=== PATIENT | male | born 1990 | race Two or more races ===

== ENCOUNTER 2024-10-24 17:10 | Inpatient (IN) | payer BC ==
[~2024-10-24] VITALS: Ht 177.8 cm; Wt 118.8 kg
[2024-10-25] VITALS (50 sets, daily range): BP systolic 98–125; BP diastolic 60–82; PULSE 87–108; RESP 13–21; TEMP 35.9–37.2; O2SAT 91–100
[2024-10-25] MEDS ORDERED: DEXTROSE 50% WATER 50ML SYRINGE IV PRN (04:30)
[2024-10-25] MEDS: HYDROCODONE/ACETAMINOPHEN 5/325MG TABLET PO PRN (04:56)
[2024-10-25] MEDS: CEFEPIME 1GM PREMIX 50ML IV NR (06:24)
[2024-10-25] MEDS: BLOOD SUGAR DIAGNOSTIC STRIP TEST SCH (06:37)
[2024-10-25] MEDS: INSULIN LISPRO 100 UNITS/ML SUBCUT SCH (07:10)
[2024-10-25 08:04] LABS: CLARITY URINE CLEAR (CLEAR); COLOR URINE DARK YELLOW (YELLOW); GLUCOSE URINE NEGATIVE (NEGATIVE); KETONES URINE 1+ (NEGATIVE); LEUKOCYTE ESTERASE URINE NEGATIVE (NEGATIVE); NITRITE URINE NEGATIVE (NEGATIVE); OCCULT BLOOD URINE 2+ (NEGATIVE); PH URINE 5.5 (4.5-8.0); PROTEIN URINE 3+ (NEGATIVE); SPECIFIC GRAVITY URINE 1.037 (1.005-1.030)
[2024-10-25 08:44] LABS: BACTERIA URINE 2+; RBC URINE 25-50 /hpf (0-2); SQUAMOUS EPITHELIAL CELL URINE NONE SEEN /lpf (RARE/1+); YEAST URINE NONE SEEN
[2024-10-25 08:45] LABS: MUCUS URINE 2+ /lpf (NONE/TRACE)
[2024-10-25] MEDS: METOPROLOL TARTRATE 50MG TABLET PO SCH (09:00)
[2024-10-25] MEDS ORDERED: CEFEPIME 1GM IN DEXT 5% 50ML IV SCH (09:00)
[2024-10-25] MEDS: LOSARTAN 50 MG TABLET PO SCH (09:00)
[2024-10-25] MEDS ORDERED: GENTAMICIN SULF 40MG/ML 2ML VIAL ONE (09:24)
[2024-10-25] MEDS ORDERED: THROMBIN (BOVINE) 5000 UNITS/VIAL TOP ONE (09:24)
[2024-10-25] MEDS ORDERED: LIDOCAINE HCL/EPINEPHRINE 1%-EPI 1:100,000 20ML VIAL ONE (09:24)
[2024-10-25] MEDS ORDERED: SUGAMMADEX SODIUM 200MG/2ML VIAL IV ONE (09:52)
[2024-10-25] MEDS ORDERED: PROPOFOL 200MG/20ML VIAL IV ONE (10:07)
[2024-10-25] MEDS ORDERED: FENTANYL CITRATE/PF 50MCG/ML 2ML VIAL ONE ×2 (10:08→12:41)
[2024-10-25] MEDS ORDERED: MIDAZOLAM HCL 2 MG/2 ML VIAL ONE ×2 (10:08→12:41)
[2024-10-25 10:33] LABS: INR 1.1; PROTHROMBIN TIME 11.7 sec (9.6-11.0)
[2024-10-25 10:36] LABS: CHLORIDE 97 mEq/L (98-107); HEMATOCRIT. 40.2 % (42.0-52.0); MEAN CORPUSCULAR HEMOGLOBIN 27.3 pg (28.0-32.0); MEAN CORPUSCULAR HGB CONC 32.3 g/dL (31.0-37.0); MEAN CORPUSCULAR VOLUME 84.3 fL (80.0-94.0); PLATELET 301 x1000/uL (130-400); POTASSIUM 3.3 mEq/L (3.5-5.1); RED BLOOD CELL COUNT 4.77 mill/uL (4.7-6.1); RED CELL DISTRIBUTION WIDTH 13.8 % (11.6-14.6); SODIUM 133 mEq/L (136-145); WHITE BLOOD COUNT 15.2 x1000/uL (4.5-11.0)
[2024-10-25 10:37] LABS: CARBON DIOXIDE 25 mEq/L (21-32)
[2024-10-25 10:42] LABS: CREATININE 0.6 mg/dL (0.6-1.3); GLUCOSE 152 mg/dL (70-105); TRIGLYCERIDE 105 mg/dL (0-150); UREA NITROGEN BLOOD 20 mg/dL (9-23)
[2024-10-25 10:43] LABS: LDL CHOLESTEROL 59 mg/dL (5-100)
[2024-10-25 10:44] LABS: CHOLESTEROL 97 mg/dL (<200); HDL CHOLESTEROL 21 mg/dL (>55)
[2024-10-25 10:45] LABS: DIFFERENTIAL COMMENT 1
[2024-10-25] MEDS ORDERED: LIDOCAINE HCL 1% 20ML VIAL ONE (10:58)
[2024-10-25] MEDS ORDERED: ROCURONIUM BROMIDE 10MG/ML VIAL 5ML IV ONE (11:04)
[2024-10-25] MEDS ORDERED: HYDROMORPHONE HCL/PF 2MG/ML INJ ONE (11:08)
[2024-10-25] MEDS: PROPOFOL 10MG/ML 100ML 100 ML IV PRN (13:50)
[2024-10-25] MEDS ORDERED: CEFAZOLIN SODIUM 1000MG/VIAL IV SCH (14:00)
[2024-10-25 14:04] LABS: BG BASE EXCESS -2.5 mmol/L (-2.0-3.0); BG CARBOXYHEMOGLOBIN 0.9 % (0.5-1.5); BG DEOXYHEMOGLOBIN 1.5 % (0.0-5.0); BG FRACTION INSPIRED OXYGEN 100; BG HCO3 ACT 23.2 mmol/L (21.0-28.0); BG OXYGEN SATURATION 98.5 % (94.0-98.0); BG OXYHEMOGLOBIN 97.6 % (94.0-98.0); BG PCO2 43.2 mmHg (35.0-48.0); BG PH 7.347 (7.350-7.450); BG PO2 127.6 mmHg (83.0-108.0); BG SAMPLE SITE ALINE; BG TOTAL HEMOGLOBIN 13.1 g/dL (13.5-17.5); BG VENT MODE VENT - AC
[2024-10-25] MEDS: CEFAZOLIN 1000MG PREMIX 50ML IV SCH (14:34)
[2024-10-25] MEDS: DEXT 5%/LACTATED RINGERS 1,000 ML IV SCH (14:34)
[2024-10-25] MEDS: CEFEPIME 1GM PREMIX 50ML IV SCH (14:55)
[2024-10-25] MEDS: METFORMIN HCL 500MG TABLET PO SCH (17:00)
[2024-10-25] MEDS: DEXAMETHASONE 4MG/ML 1ML VIAL IV SCH (17:57)
[2024-10-25 18:54] LABS: PLATELET ESTIMATE NORMAL
[2024-10-25] MEDS: VANCOMYCIN 2,000 MG in SODIUM CHLORIDE 0.9% 500 ML IV NR (20:17)
[2024-10-25] MEDS: ATORVASTATIN CALCIUM 20MG TABLET PO SCH (21:00)
[2024-10-25] MEDS: POTASSIUM CHLORIDE 40 MEQ in DEXT 5% WATER 250 ML IV NR (21:14)
[2024-10-26] VITALS (95 sets, daily range): BP systolic 90–145; BP diastolic 61–89; PULSE 85–115; RESP 10–30; TEMP 36.9–37.2; O2SAT 82–100
[2024-10-26] MEDS: IPRATROPIUM/ALBUTEROL 0.5-3(2.5)MG/3ML NEB HHN SCH (00:20)
[2024-10-26] MEDS: BLOOD SUGAR DIAGNOSTIC STRIP TEST SCH (00:34)
[2024-10-26] MEDS: INSULIN LISPRO 100 UNITS/ML SUBCUT SCH (00:43)
[2024-10-26] MEDS: VANCOMYCIN 1.5GM/250ML IV SCH (04:38)
[2024-10-26] MEDS: MORPHINE SULFATE 4 MG/ML INJ (FOR IV/IM USE) IV PRN (05:16)
[2024-10-26 05:22] LABS: HEMATOCRIT 36.2 % (42.0-52.0); HEMOGLOBIN 12.2 g/dL (14.0-18.0); MEAN CORPUSCULAR HEMOGLOBIN 28.3 pg (28.0-32.0); MEAN CORPUSCULAR HGB CONC 33.6 g/dL (31.0-37.0); MEAN CORPUSCULAR VOLUME 84.2 fL (80.0-94.0); PLATELET 300 x1000/uL (130-400); RED BLOOD CELL COUNT 4.31 mill/uL (4.7-6.1); RED CELL DISTRIBUTION WIDTH 13.6 % (11.6-14.6); WHITE BLOOD COUNT 18.5 x1000/uL (4.5-11.0)
[2024-10-26 05:30] LABS: CHLORIDE 100 mEq/L (98-107); POTASSIUM 3.9 mEq/L (3.5-5.1); SODIUM 133 mEq/L (136-145)
[2024-10-26 05:31] LABS: CARBON DIOXIDE 25 mEq/L (21-32)
[2024-10-26 05:32] LABS: CALCIUM 8.4 mg/dL (8.7-10.4)
[2024-10-26 05:36] LABS: CREATININE 0.6 mg/dL (0.6-1.3); TRIGLYCERIDE 132 mg/dL (0-150)
[2024-10-26 05:37] LABS: UREA NITROGEN BLOOD 25 mg/dL (9-23)
[2024-10-26 06:40] LABS: GLUCOSE 308 mg/dL (70-105)
[2024-10-26] MEDS: SODIUM CHLORIDE 0.9% 1,000 ML IV SCH (13:27)
[2024-10-26] MEDS: PROPOFOL 10MG/ML 100ML 100 ML IV PRN (14:07)
[2024-10-26] MEDS: NICARDIPINE 100 MG in SODIUM CHLORIDE 0.9% 60 ML IV PRN (20:23)
[2024-10-26 23:39] LABS: BG BASE EXCESS 1.1 mmol/L (-2.0-3.0); BG CARBOXYHEMOGLOBIN 0.5 % (0.5-1.5); BG DEOXYHEMOGLOBIN 0.8 % (0.0-5.0); BG FRACTION INSPIRED OXYGEN 80; BG HCO3 ACT 25.4 mmol/L (21.0-28.0); BG METHEMOGLOBIN 0.3 % (0.5-1.5); BG OXYGEN SATURATION 99.2 % (94.0-98.0); BG OXYHEMOGLOBIN 98.4 % (94.0-98.0); BG PCO2 39.2 mmHg (35.0-48.0); BG PH 7.429 (7.350-7.450); BG PO2 151.2 mmHg (83.0-108.0); BG SAMPLE SITE RIGHT RADIAL; BG TOTAL HEMOGLOBIN 13.8 g/dL (13.5-17.5); BG VENT MODE HIGH FLOW
[2024-10-27] VITALS (103 sets, daily range): BP systolic 82–159; BP diastolic 44–91; PULSE 86–116; RESP 0–30; TEMP 36.5–37.2; O2SAT 93–100
[2024-10-27 05:36] LABS: HEMATOCRIT. 36.9 % (42.0-52.0); HEMOGLOBIN. 12.3 g/dL (14.0-18.0); MEAN CORPUSCULAR HEMOGLOBIN 28.2 pg (28.0-32.0); MEAN CORPUSCULAR HGB CONC 33.5 g/dL (31.0-37.0); MEAN CORPUSCULAR VOLUME 84.3 fL (80.0-94.0); MEAN PLATELET VOLUME 8.1 fl (7.4-10.4); PLATELET 284 x1000/uL (130-400); RED BLOOD CELL COUNT 4.38 mill/uL (4.7-6.1); RED CELL DISTRIBUTION WIDTH 13.7 % (11.6-14.6); WHITE BLOOD COUNT 30.7 x1000/uL (4.5-11.0)
[2024-10-27 05:40] LABS: CHLORIDE 103 mEq/L (98-107); POTASSIUM 3.6 mEq/L (3.5-5.1); SODIUM 138 mEq/L (136-145)
[2024-10-27 05:41] LABS: CARBON DIOXIDE 27 mEq/L (21-32)
[2024-10-27 05:42] LABS: CALCIUM 8.3 mg/dL (8.7-10.4)
[2024-10-27 05:46] LABS: CREATININE 0.6 mg/dL (0.6-1.3); GLUCOSE 255 mg/dL (70-105); TRIGLYCERIDE 155 mg/dL (0-150)
[2024-10-27 05:47] LABS: UREA NITROGEN BLOOD 20 mg/dL (9-23)
[2024-10-27 06:38] LABS: DIFFERENTIAL COMMENT 1
[2024-10-27] MEDS: GADOTERATE MEGLUMINE 5 MMOL/10 ML VIAL IV ONE (09:07)
[2024-10-27] MEDS: LIDOCAINE HCL 1% 10 MG/ML 10ML VIAL ONE (09:07)
[2024-10-27 11:00] LABS: PLATELET ESTIMATE NORMAL
[2024-10-27] MEDS ORDERED: CLONIDINE 0.1MG TABLET PO PRN ×2 (13:15→19:15)
[2024-10-27] MEDS: CEFEPIME 2GM/50ML DUPLEX 50 ML IV SCH (13:24)
[2024-10-27] MEDS: METOPROLOL TARTRATE 50MG TABLET PO NR (13:24)
[2024-10-27] MEDS: LOSARTAN 50 MG TABLET PO NR (13:24)
[2024-10-27] MEDS: VANCOMYCIN 1G PREMIX 200 ML IV SCH (13:24)
[2024-10-27] MEDS ORDERED: VANCOMYCIN 1.25GM PMX (XELLIA) 250 ML IV SCH (14:00)
[2024-10-27] MEDS: INSULIN LISPRO 100 UNITS/ML SUBCUT SCH (17:30)
[2024-10-27] MEDS: BACITRACIN 14GM TUBE TOP SCH (20:45)
[2024-10-28] VITALS (57 sets, daily range): BP systolic 113–194; BP diastolic 74–103; PULSE 78–97; RESP 10–27; TEMP 36–36.8; O2SAT 91–100
[2024-10-28 10:01] LABS: HEMOGLOBIN. 12.3 g/dL (14.0-18.0); MEAN CORPUSCULAR HEMOGLOBIN 27.4 pg (28.0-32.0); MEAN CORPUSCULAR HGB CONC 32.4 g/dL (31.0-37.0); MEAN CORPUSCULAR VOLUME 84.7 fL (80.0-94.0); MEAN PLATELET VOLUME 8.1 fl (7.4-10.4); PLATELET 268 x1000/uL (130-400); RED BLOOD CELL COUNT 4.49 mill/uL (4.7-6.1); RED CELL DISTRIBUTION WIDTH 13.7 % (11.6-14.6); WHITE BLOOD COUNT 15.5 x1000/uL (4.5-11.0)
[2024-10-28 10:08] LABS: DIFFERENTIAL COMMENT 1
[2024-10-28 10:13] LABS: CHLORIDE 102 mEq/L (98-107); SODIUM 133 mEq/L (136-145)
[2024-10-28 10:14] LABS: CARBON DIOXIDE 25 mEq/L (21-32)
[2024-10-28 10:15] LABS: CALCIUM 8.8 mg/dL (8.7-10.4)
[2024-10-28 10:19] LABS: CREATININE 0.6 mg/dL (0.6-1.3); GLUCOSE 279 mg/dL (70-105); UREA NITROGEN BLOOD 23 mg/dL (9-23)
[2024-10-28] MEDS ORDERED: NALOXONE HCL 0.4MG/ML VIAL IV PRN (11:45)
[2024-10-28 13:55] LABS: PLATELET ESTIMATE NORMAL
[2024-10-28] MEDS: CEFTRIAXONE 2GM/50ML 50 ML IV SCH (23:22)
[2024-10-29] VITALS (8 sets, daily range): BP systolic 118–135; BP diastolic 75–90; PULSE 79–97; RESP 16–19; TEMP 35.7–36.9; O2SAT 96–98
[2024-10-29 07:34] LABS: CHLORIDE 104 mEq/L (98-107); POTASSIUM 3.9 mEq/L (3.5-5.1); SODIUM 141 mEq/L (136-145)
[2024-10-29 07:35] LABS: CALCIUM 8.4 mg/dL (8.7-10.4); CARBON DIOXIDE 30 mEq/L (21-32)
[2024-10-29 07:40] LABS: CREATININE 0.5 mg/dL (0.6-1.3); GLUCOSE 150 mg/dL (70-105); UREA NITROGEN BLOOD 21 mg/dL (9-23)
[2024-10-29 07:41] LABS: VANCOMYCIN TROUGH 13.4 ug/mL (5.0-10.0)
[2024-10-29 07:53] LABS: BASOPHILS % 0.1 % (0.0-2.0); EOSINOPHILS % 0.4 % (0.0-5.0); HEMATOCRIT. 37.1 % (42.0-52.0); HEMOGLOBIN. 12.1 g/dL (14.0-18.0); LYMPHOCYTES % 11.2 % (20.0-50.0); MEAN CORPUSCULAR HEMOGLOBIN 27.6 pg (28.0-32.0); MEAN CORPUSCULAR HGB CONC 32.7 g/dL (31.0-37.0); MEAN CORPUSCULAR VOLUME 84.6 fL (80.0-94.0); MEAN PLATELET VOLUME 7.5 fl (7.4-10.4); MONOCYTES % 5.7 % (2.0-8.0); NEUTROPHILS % 82.6 % (40.0-76.0); PLATELET 255 x1000/uL (130-400); RED BLOOD CELL COUNT 4.39 mill/uL (4.7-6.1); RED CELL DISTRIBUTION WIDTH 13.6 % (11.6-14.6); WHITE BLOOD COUNT 15.3 x1000/uL (4.5-11.0)
[2024-10-30] VITALS (9 sets, daily range): BP systolic 108–132; BP diastolic 69–85; PULSE 82–100; RESP 18–20; TEMP 36.3–37.7; O2SAT 93–98
[2024-10-30] MEDS ORDERED: METF-416 PO (12:07)
[2024-10-31] VITALS: BP 126/85; PULSE 101; RESP 20; TEMP 36.2; O2SAT 96
[2024-10-31 04:00] VITALS: BP 148/93; PULSE 94; RESP 20; TEMP 36.2; O2SAT 97
[2024-10-31 08:00] VITALS: BP 144/91; PULSE 92; RESP 19; TEMP 38.3; O2SAT 100
[2024-10-31 12:00] VITALS: BP 131/83; PULSE 96; RESP 19; TEMP 37.8; O2SAT 100
[2024-10-31 16:00] VITALS: BP 116/77; PULSE 100; RESP 19; TEMP 36.7; O2SAT 95
[2024-10-31 16:57] LABS: BASOPHILS % 0.4 % (0.0-2.0); EOSINOPHILS % 1.5 % (0.0-5.0); HEMATOCRIT. 37.3 % (42.0-52.0); HEMOGLOBIN. 11.9 g/dL (14.0-18.0); MEAN CORPUSCULAR HEMOGLOBIN 27.6 pg (28.0-32.0); MEAN CORPUSCULAR HGB CONC 31.9 g/dL (31.0-37.0); MEAN CORPUSCULAR VOLUME 86.6 fL (80.0-94.0); MEAN PLATELET VOLUME 8.3 fl (7.4-10.4); NEUTROPHILS % 81.1 % (40.0-76.0); PLATELET 216 x1000/uL (130-400); RED CELL DISTRIBUTION WIDTH 13.6 % (11.6-14.6); WHITE BLOOD COUNT 13.6 x1000/uL (4.5-11.0)
[2024-10-31 20:00] VITALS: BP 116/83; PULSE 107; RESP 19; TEMP 36.1; O2SAT 94
[2024-11-01] VITALS: BP 144/87; PULSE 92; RESP 18; TEMP 36.7; O2SAT 96
[2024-11-01 04:00] VITALS: BP 126/79; PULSE 96; RESP 18; TEMP 36.3; O2SAT 95
[2024-11-01 05:51] LABS: CLARITY URINE CLEAR (CLEAR); COLOR URINE YELLOW (YELLOW); GLUCOSE URINE NEGATIVE (NEGATIVE); KETONES URINE NEGATIVE (NEGATIVE); LEUKOCYTE ESTERASE URINE NEGATIVE (NEGATIVE); NITRITE URINE NEGATIVE (NEGATIVE); OCCULT BLOOD URINE 1+ (NEGATIVE); PH URINE 5.5 (4.5-8.0); PROTEIN URINE NEGATIVE (NEGATIVE); SPECIFIC GRAVITY URINE 1.018 (1.005-1.030); UROBILINOGEN URINE 0.2 E.U./dL (0.2-1.0)
[2024-11-01 07:13] LABS: WBC URINE 0-2 /hpf (0-2)
[2024-11-01 07:14] LABS: BACTERIA URINE NONE SEEN; SQUAMOUS EPITHELIAL CELL URINE RARE /lpf (RARE/1+)
[2024-11-01 07:23] LABS: BASOPHILS % 0.2 % (0.0-2.0); EOSINOPHILS % 1.6 % (0.0-5.0); HEMATOCRIT. 35.2 % (42.0-52.0); HEMOGLOBIN. 11.7 g/dL (14.0-18.0); LYMPHOCYTES % 11.2 % (20.0-50.0); MEAN CORPUSCULAR HEMOGLOBIN 28.1 pg (28.0-32.0); MEAN CORPUSCULAR HGB CONC 33.3 g/dL (31.0-37.0); MEAN CORPUSCULAR VOLUME 84.2 fL (80.0-94.0); MEAN PLATELET VOLUME 8.2 fl (7.4-10.4); MONOCYTES % 4.8 % (2.0-8.0); NEUTROPHILS % 82.2 % (40.0-76.0); PLATELET 183 x1000/uL (130-400); RED BLOOD CELL COUNT 4.18 mill/uL (4.7-6.1); RED CELL DISTRIBUTION WIDTH 13.3 % (11.6-14.6); WHITE BLOOD COUNT 12.7 x1000/uL (4.5-11.0)
[2024-11-01 08:00] VITALS: BP 125/82; PULSE 97; RESP 16; TEMP 36.8; O2SAT 96
[2024-11-01 12:00] VITALS: BP 135/88; PULSE 90; RESP 18; TEMP 37.6; O2SAT 97
[2024-11-01 16:00] VITALS: BP 113/70; PULSE 98; RESP 18; TEMP 37.6; O2SAT 95
[2024-11-01] MEDS: LOPERAMIDE HCL 2MG CAPSULE PO PRN (18:31)
[2024-11-01 20:00] VITALS: BP 125/77; PULSE 101; RESP 20; TEMP 36.1; O2SAT 93
[2024-11-02] VITALS: BP 125/75; PULSE 84; RESP 20; TEMP 36.1; O2SAT 96
[2024-11-02 04:00] VITALS: BP 135/86; PULSE 94; RESP 19; TEMP 37.1; O2SAT 96
[2024-11-02 08:00] VITALS: BP 136/90; PULSE 94; RESP 18; TEMP 36.2; O2SAT 98
[2024-11-02 12:00] VITALS: BP 132/79; PULSE 96; RESP 18; TEMP 35.8; O2SAT 96
[2024-11-02 16:00] VITALS: BP 140/88; PULSE 91; RESP 18; TEMP 35.8; O2SAT 97
[2024-11-02 20:00] VITALS: BP 130/84; PULSE 90; RESP 20; TEMP 36.5; O2SAT 95
[2024-11-03] VITALS: BP 124/76; PULSE 88; RESP 18; TEMP 36.8; O2SAT 95
[2024-11-03 04:00] VITALS: BP 136/78; PULSE 90; RESP 20; TEMP 36.8; O2SAT 95
[2024-11-03 07:07] LABS: BASOPHILS % 0.2 % (0.0-2.0); EOSINOPHILS % 3.2 % (0.0-5.0); HEMATOCRIT. 36.3 % (42.0-52.0); HEMOGLOBIN. 12.1 g/dL (14.0-18.0); LYMPHOCYTES % 13.7 % (20.0-50.0); MEAN CORPUSCULAR HEMOGLOBIN 27.9 pg (28.0-32.0); MEAN CORPUSCULAR HGB CONC 33.4 g/dL (31.0-37.0); MEAN CORPUSCULAR VOLUME 83.5 fL (80.0-94.0); MEAN PLATELET VOLUME 8.2 fl (7.4-10.4); MONOCYTES % 6.5 % (2.0-8.0); NEUTROPHILS % 76.4 % (40.0-76.0); PLATELET 186 x1000/uL (130-400); RED BLOOD CELL COUNT 4.35 mill/uL (4.7-6.1); RED CELL DISTRIBUTION WIDTH 13.6 % (11.6-14.6); WHITE BLOOD COUNT 8.5 x1000/uL (4.5-11.0)
[2024-11-03 07:25] LABS: CARBON DIOXIDE 31 mEq/L (21-32); CHLORIDE 103 mEq/L (98-107); POTASSIUM 3.9 mEq/L (3.5-5.1); SODIUM 141 mEq/L (136-145)
[2024-11-03 07:27] LABS: CALCIUM 8.3 mg/dL (8.7-10.4)
[2024-11-03 07:31] LABS: GLUCOSE 123 mg/dL (70-105)
[2024-11-03 07:32] LABS: UREA NITROGEN BLOOD 6 mg/dL (9-23)
[2024-11-03 07:40] LABS: CREATININE 0.3 mg/dL (0.6-1.3)
[2024-11-03 08:30] VITALS: BP 142/82; PULSE 85; RESP 18; TEMP 36.7; O2SAT 97
[2024-11-03 12:00] VITALS: BP 136/88; PULSE 80; RESP 18; TEMP 35.8; O2SAT 98
[2024-11-03 17:00] VITALS: BP 140/90; PULSE 86; RESP 18; TEMP 36.7; O2SAT 97
[2024-11-03 20:00] VITALS: BP 132/87; PULSE 87; RESP 20; TEMP 36.3; O2SAT 98
[2024-11-04] VITALS: BP 126/80; PULSE 84; RESP 18; TEMP 36.3; O2SAT 97
[2024-11-04 04:00] VITALS: BP 129/81; PULSE 90; RESP 20; TEMP 36.6; O2SAT 99
[2024-11-04 06:32] LABS: BASOPHILS % 0.3 % (0.0-2.0); HEMATOCRIT. 36.7 % (42.0-52.0); HEMOGLOBIN. 12.3 g/dL (14.0-18.0); LYMPHOCYTES % 16.5 % (20.0-50.0); MEAN CORPUSCULAR HEMOGLOBIN 28.1 pg (28.0-32.0); MEAN CORPUSCULAR HGB CONC 33.6 g/dL (31.0-37.0); MEAN CORPUSCULAR VOLUME 83.7 fL (80.0-94.0); MEAN PLATELET VOLUME 8.4 fl (7.4-10.4); MONOCYTES % 6.3 % (2.0-8.0); NEUTROPHILS % 73.9 % (40.0-76.0); PLATELET 175 x1000/uL (130-400); RED BLOOD CELL COUNT 4.39 mill/uL (4.7-6.1)
[2024-11-04 06:42] LABS: CHLORIDE 104 mEq/L (98-107); SODIUM 141 mEq/L (136-145)
[2024-11-04 06:43] LABS: CARBON DIOXIDE 28 mEq/L (21-32)
[2024-11-04 06:44] LABS: CALCIUM 8.4 mg/dL (8.7-10.4)
[2024-11-04 06:48] LABS: CREATININE 0.3 mg/dL (0.6-1.3); GLUCOSE 116 mg/dL (70-105); UREA NITROGEN BLOOD 6 mg/dL (9-23)
[2024-11-04 08:00] VITALS: BP 137/89; PULSE 88; RESP 20; TEMP 37.2; O2SAT 95
[2024-11-04 12:00] VITALS: BP 102/73; PULSE 86; RESP 20; TEMP 36.1; O2SAT 96
[2024-11-04 16:00] VITALS: BP 125/82; PULSE 91; RESP 18; TEMP 36.7; O2SAT 95
[2024-11-04 20:00] VITALS: BP 109/76; PULSE 102; RESP 18; TEMP 35.7; O2SAT 96
[2024-11-05] VITALS: BP 127/71; PULSE 98; RESP 18; TEMP 36.8; O2SAT 96
[2024-11-05 04:00] VITALS: BP 124/79; PULSE 101; RESP 20; TEMP 36; O2SAT 97
[2024-11-05 06:08] LABS: CARBON DIOXIDE 29 mEq/L (21-32); CHLORIDE 103 mEq/L (98-107); SODIUM 140 mEq/L (136-145)
[2024-11-05 06:09] LABS: CALCIUM 8.3 mg/dL (8.7-10.4)
[2024-11-05 06:12] LABS: BASOPHILS % 0.3 % (0.0-2.0); EOSINOPHILS % 2.3 % (0.0-5.0); HEMATOCRIT. 35.9 % (42.0-52.0); HEMOGLOBIN. 12.2 g/dL (14.0-18.0); LYMPHOCYTES % 12.7 % (20.0-50.0); MEAN CORPUSCULAR HEMOGLOBIN 28.3 pg (28.0-32.0); MEAN CORPUSCULAR HGB CONC 33.9 g/dL (31.0-37.0); MEAN CORPUSCULAR VOLUME 83.3 fL (80.0-94.0); MEAN PLATELET VOLUME 8.2 fl (7.4-10.4); MONOCYTES % 5.5 % (2.0-8.0); NEUTROPHILS % 79.2 % (40.0-76.0); PLATELET 173 x1000/uL (130-400); RED BLOOD CELL COUNT 4.31 mill/uL (4.7-6.1); RED CELL DISTRIBUTION WIDTH 13.7 % (11.6-14.6); WHITE BLOOD COUNT 10.7 x1000/uL (4.5-11.0)
[2024-11-05 06:14] LABS: GLUCOSE 121 mg/dL (70-105); UREA NITROGEN BLOOD 6 mg/dL (9-23)
[2024-11-05 06:53] LABS: CREATININE 0.4 mg/dL (0.6-1.3)
[2024-11-05 08:00] VITALS: BP 119/85; PULSE 107; RESP 18; TEMP 36.7; O2SAT 96
[2024-11-05 12:00] VITALS: BP 131/89; PULSE 90; RESP 18; TEMP 36.6; O2SAT 96
[2024-11-05 16:00] VITALS: BP 104/62; PULSE 91; RESP 18; TEMP 36.6; O2SAT 97
[2024-11-05 20:00] VITALS: BP 127/77; PULSE 96; RESP 18; TEMP 36.4; O2SAT 99
[2024-11-06] VITALS: BP 128/80; PULSE 93; RESP 19; TEMP 37.2; O2SAT 97
[2024-11-06 04:00] VITALS: BP 128/82; PULSE 84; RESP 18; TEMP 36.9; O2SAT 97
[2024-11-06 08:00] VITALS: BP 131/79; PULSE 96; RESP 19; TEMP 36; O2SAT 98
[2024-11-06 12:00] VITALS: BP 124/78; PULSE 84; RESP 19; TEMP 36.5; O2SAT 95
[2024-11-06 16:00] VITALS: BP 119/65; PULSE 90; RESP 19; TEMP 36.6; O2SAT 95
[2024-11-06 20:00] VITALS: BP 125/77; PULSE 84; RESP 18; TEMP 36.6; O2SAT 99
[2024-11-06] MEDS: LACTOBACILLUS GG CAPSULE PO SCH (22:24)
[2024-11-07] VITALS: BP 135/56; PULSE 65; RESP 17; TEMP 36.6; O2SAT 99
[2024-11-07 04:00] VITALS: BP 126/79; PULSE 90; RESP 18; TEMP 36.8; O2SAT 99
[2024-11-07 08:00] VITALS: BP 132/85; PULSE 86; RESP 20; TEMP 36.5; O2SAT 100
[2024-11-07 12:00] VITALS: BP 138/90; PULSE 90; RESP 18; TEMP 36.6; O2SAT 97
[2024-11-07 16:00] VITALS: BP 121/73; PULSE 87; RESP 20; TEMP 36.7; O2SAT 100
[2024-11-07 20:00] VITALS: BP 140/91; PULSE 97; RESP 18; TEMP 36.3; O2SAT 96
[2024-11-07] MEDS: ENOXAPARIN 30MG/0.3ML SYR SUBCUT SCH (20:15)
[2024-11-08] VITALS: BP 118/68; PULSE 100; RESP 18; TEMP 36.4; O2SAT 99
[2024-11-08 04:00] VITALS: BP 116/77; PULSE 113; RESP 18; TEMP 36.6; O2SAT 96
[2024-11-08 08:10] VITALS: BP 140/87; PULSE 97; RESP 20; TEMP 36.6; O2SAT 99
[2024-11-08 12:00] VITALS: BP_SYST 141; BP_SYST 144; BP_DIAS 83; BP_DIAS 84; BP_DIAS 93; PULSE 89; PULSE 97; RESP 18; RESP 20; TEMP 36.6; TEMP 38.4; O2SAT 96; O2SAT 99
[2024-11-08 16:16] VITALS: BP 141/84; PULSE 98; RESP 17; TEMP 38.4; O2SAT 99
[2024-11-08] MEDS: ACETAMINOPHEN 325MG TABLET PO PRN (16:18)
[2024-11-08 20:00] VITALS: BP 162/93; PULSE 94; RESP 18; TEMP 36.8; O2SAT 97
[2024-11-09] VITALS: BP 139/92; PULSE 102; RESP 19; TEMP 36.2; O2SAT 98
[2024-11-09 04:00] VITALS: BP 132/98; PULSE 104; RESP 19; TEMP 36.1; O2SAT 97
[2024-11-09 06:11] LABS: BASOPHILS % 0.4 % (0.0-2.0); EOSINOPHILS % 2.1 % (0.0-5.0); HEMATOCRIT. 36.1 % (42.0-52.0); LYMPHOCYTES % 11.5 % (20.0-50.0); MEAN CORPUSCULAR HEMOGLOBIN 27.9 pg (28.0-32.0); MEAN CORPUSCULAR HGB CONC 33.2 g/dL (31.0-37.0); MEAN CORPUSCULAR VOLUME 84.2 fL (80.0-94.0); MEAN PLATELET VOLUME 8.2 fl (7.4-10.4); MONOCYTES % 7.5 % (2.0-8.0); NEUTROPHILS % 78.5 % (40.0-76.0); PLATELET 162 x1000/uL (130-400); RED BLOOD CELL COUNT 4.29 mill/uL (4.7-6.1); RED CELL DISTRIBUTION WIDTH 14.2 % (11.6-14.6); WHITE BLOOD COUNT 7.1 x1000/uL (4.5-11.0)
[2024-11-09 06:11] LABS: INR 1.1; PROTHROMBIN TIME 11.4 sec (9.6-11.0)
[2024-11-09 06:25] LABS: CARBON DIOXIDE 26 mEq/L (21-32); CHLORIDE 103 mEq/L (98-107); POTASSIUM 3.6 mEq/L (3.5-5.1); SODIUM 141 mEq/L (136-145)
[2024-11-09 06:26] LABS: CALCIUM 8.9 mg/dL (8.7-10.4)
[2024-11-09 06:31] LABS: CREATININE 0.4 mg/dL (0.6-1.3); GLUCOSE 108 mg/dL (70-105)
[2024-11-09 06:34] LABS: UREA NITROGEN BLOOD < 5 mg/dL (9-23)
[2024-11-09 08:00] VITALS: BP 134/97; PULSE 111; RESP 18; TEMP 37.6; O2SAT 96
[2024-11-09 12:00] VITALS: BP 120/91; PULSE 100; RESP 18; TEMP 36.7; O2SAT 95
[2024-11-09 16:00] VITALS: BP 96/62; PULSE 90; RESP 18; TEMP 36.6; O2SAT 94
[2024-11-09 20:00] VITALS: BP 124/80; PULSE 111; RESP 18; TEMP 37.6; O2SAT 93
[2024-11-10 04:00] VITALS: BP 110/74; PULSE 99; RESP 18; TEMP 36.8; O2SAT 99
[2024-11-10 08:00] VITALS: BP 112/69; PULSE 100; RESP 18; TEMP 37.3; O2SAT 97
[2024-11-10 12:00] VITALS: BP 140/89; PULSE 94; RESP 18; TEMP 36.7; O2SAT 95
[2024-11-10 16:00] VITALS: BP 116/70; PULSE 95; RESP 18; TEMP 37.4; O2SAT 97
[2024-11-10 20:00] VITALS: BP 103/70; PULSE 98; RESP 20; TEMP 36.2; O2SAT 93
[2024-11-11] VITALS: BP 126/85; PULSE 89; RESP 20; TEMP 35.8; O2SAT 96
[2024-11-11 04:00] VITALS: BP 134/91; PULSE 96; RESP 18; TEMP 36.8; O2SAT 97
[2024-11-11 08:00] VITALS: BP 139/91; PULSE 90; RESP 20; TEMP 37.3; O2SAT 99
[2024-11-11 12:00] VITALS: BP 90/60; PULSE 88; RESP 18; TEMP 37.2; O2SAT 100
[2024-11-11 16:00] VITALS: BP 112/74; PULSE 86; RESP 17; TEMP 37.1; O2SAT 96
[2024-11-11 20:00] VITALS: BP 134/88; PULSE 98; RESP 18; TEMP 36.1; O2SAT 98
[2024-11-12] VITALS: BP 136/84; PULSE 93; RESP 18; TEMP 36.2; O2SAT 98
[2024-11-12 04:00] VITALS: BP 135/90; PULSE 89; RESP 18; TEMP 36.1; O2SAT 96
[2024-11-12 08:00] VITALS: BP 149/96; PULSE 84; RESP 18; TEMP 36.3; O2SAT 95
[2024-11-12 12:00] VITALS: BP 122/87; PULSE 85; RESP 18; TEMP 36.5; O2SAT 95
[2024-11-12 16:00] VITALS: BP 143/88; PULSE 86; RESP 18; TEMP 36.3; O2SAT 96
[2024-11-12 20:00] VITALS: BP 180/92; PULSE 91; RESP 18; TEMP 36.7; O2SAT 95
[2024-11-13] VITALS: BP 121/77; PULSE 79; RESP 18; TEMP 36.6; O2SAT 95
[2024-11-13 04:00] VITALS: BP 134/98; PULSE 87; RESP 18; TEMP 36.1; O2SAT 98
[2024-11-13 08:00] VITALS: BP 140/89; PULSE 83; RESP 20; TEMP 36.6; O2SAT 95
[2024-11-13 12:00] VITALS: BP 103/65; PULSE 84; RESP 17; TEMP 35.6; O2SAT 99
[2024-11-13 16:00] VITALS: BP 111/67; PULSE 90; RESP 18; TEMP 36; O2SAT 96
[2024-11-13 20:00] VITALS: BP 137/90; PULSE 93; RESP 19; TEMP 36.7; O2SAT 100
[2024-11-14] VITALS: BP 150/92; PULSE 85; RESP 19; TEMP 36.8; O2SAT 95
[2024-11-14 04:00] VITALS: BP 132/83; PULSE 82; RESP 19; TEMP 36.2; O2SAT 97
[2024-11-14 08:00] VITALS: BP 121/76; PULSE 82; RESP 17; TEMP 36.1; O2SAT 96
[2024-11-14 12:00] VITALS: BP 137/93; PULSE 91; RESP 18; TEMP 36.8; O2SAT 95
[2024-11-14 16:00] VITALS: BP 130/90; PULSE 90; RESP 17; TEMP 36.6; O2SAT 96
[2024-11-14 20:00] VITALS: BP 141/95; PULSE 102; RESP 19; TEMP 36.6; O2SAT 100
[2024-11-15] VITALS: BP 138/93; PULSE 94; RESP 19; TEMP 36.1; O2SAT 96
[2024-11-15 04:00] VITALS: BP 137/95; PULSE 96; RESP 19; TEMP 36.2; O2SAT 98
[2024-11-15 08:00] VITALS: BP 129/83; PULSE 89; RESP 18; TEMP 36.2; O2SAT 96
[2024-11-15] MEDS: MULTIVITAMINS,THER W-MINERALS TABLET PO SCH (08:39)
[2024-11-15] MEDS: ASCORBIC ACID 500 MG TABLET PO SCH (09:00)
[2024-11-15 12:00] VITALS: BP 111/68; PULSE 90; RESP 22; TEMP 35.9; O2SAT 97
[2024-11-15 16:00] VITALS: BP 133/83; PULSE 90; RESP 20; TEMP 36.7; O2SAT 95
[2024-11-15 20:00] VITALS: BP 117/79; PULSE 109; RESP 20; TEMP 36.6; O2SAT 96
[2024-11-16] VITALS: BP 140/92; PULSE 105; RESP 20; TEMP 36.6; O2SAT 95
[2024-11-16 04:00] VITALS: BP 123/78; PULSE 89; RESP 20; TEMP 36.4; O2SAT 95
[2024-11-16 08:00] VITALS: BP 133/87; PULSE 90; RESP 18; TEMP 36.2; O2SAT 98
[2024-11-16 12:00] VITALS: BP 115/71; PULSE 102; RESP 18; TEMP 36.6; O2SAT 98
[2024-11-16 16:00] VITALS: BP 110/11; PULSE 96; RESP 18; TEMP 36.4; O2SAT 97
[2024-11-16 20:00] VITALS: BP 136/85; PULSE 102; RESP 20; TEMP 37.1; O2SAT 92
[2024-11-17] VITALS: BP 126/78; PULSE 100; RESP 20; TEMP 35.9; O2SAT 97
[2024-11-17 04:00] VITALS: BP 136/88; PULSE 88; RESP 20; TEMP 36.6; O2SAT 95
[2024-11-17 08:00] VITALS: BP 125/76; PULSE 98; RESP 19; TEMP 36.5; O2SAT 97
[2024-11-17 12:00] VITALS: BP 100/67; PULSE 101; RESP 18; TEMP 35.6; O2SAT 97
[2024-11-17 16:00] VITALS: BP 122/75; PULSE 100; RESP 18; TEMP 35.8; O2SAT 96
[2024-11-17 20:00] VITALS: BP 108/66; PULSE 116; RESP 20; TEMP 36.3; O2SAT 98
[2024-11-18] VITALS: BP 119/83; PULSE 103; RESP 20; TEMP 36.3; O2SAT 96
[2024-11-18 04:00] VITALS: BP 124/89; PULSE 97; RESP 20; TEMP 36.4; O2SAT 97
[2024-11-18 08:00] VITALS: BP 138/92; PULSE 89; RESP 18; TEMP 36.6; O2SAT 100
[2024-11-18 12:00] VITALS: BP 105/66; PULSE 92; RESP 18; TEMP 36.4; O2SAT 97
[2024-11-18 16:00] VITALS: BP 133/91; PULSE 94; TEMP 36.6; O2SAT 97
[2024-11-18 20:00] VITALS: BP_SYST 107; BP_DIAS 46; BP_DIAS 70; PULSE 126; PULSE 63; RESP 18; RESP 20; TEMP 36.3; TEMP 37.1; O2SAT 95; O2SAT 99
[2024-11-19] VITALS: BP 110/74; PULSE 120; RESP 20; TEMP 36.7
[2024-11-19 04:00] VITALS: BP 123/76; PULSE 94; RESP 20; TEMP 36.2; O2SAT 95
[2024-11-19 08:00] VITALS: BP 145/86; PULSE 100; RESP 19; TEMP 36.2; O2SAT 96
[2024-11-19 12:00] VITALS: BP 132/82; PULSE 102; RESP 18; TEMP 36.5; O2SAT 95
[2024-11-19 16:00] VITALS: BP 147/91; PULSE 107; RESP 19; TEMP 36.4; O2SAT 95
[2024-11-19 20:00] VITALS: BP 152/75; PULSE 72; RESP 19; TEMP 36.5; O2SAT 96
[2024-11-20] VITALS: BP 108/62; PULSE 97; RESP 17; TEMP 36.9; O2SAT 98
[2024-11-20 04:00] VITALS: BP 121/80; PULSE 82; RESP 20; TEMP 36.4; O2SAT 99
[2024-11-20 08:00] VITALS: BP 138/94; PULSE 102; RESP 19; TEMP 36.6; O2SAT 98
[2024-11-20] MEDS: BISACODYL 10MG SUPP PR SCH (09:39)
[2024-11-20 12:00] VITALS: BP 131/92; PULSE 98; RESP 19; TEMP 37.2; O2SAT 99
[2024-11-20 16:00] VITALS: BP 127/74; PULSE 100; RESP 18; TEMP 36.9; O2SAT 98
[2024-11-20 20:00] VITALS: BP 121/80; PULSE 129; RESP 19; TEMP 36.7; O2SAT 98
[2024-11-21] VITALS: BP 111/74; PULSE 101; RESP 19; TEMP 36.7; O2SAT 96
[2024-11-21 04:00] VITALS: BP 114/84; PULSE 105; RESP 19; TEMP 36.7; O2SAT 96
[2024-11-21 08:00] VITALS: BP 115/72; PULSE 109; RESP 18; TEMP 36.1; O2SAT 95
[2024-11-21 12:00] VITALS: BP 117/67; PULSE 101; RESP 18; TEMP 35.6; O2SAT 97
[2024-11-21 16:00] VITALS: BP 134/84; PULSE 104; RESP 18; TEMP 36.1; O2SAT 98
[2024-11-21 20:00] VITALS: BP 115/73; PULSE 113; RESP 18; TEMP 36.8; O2SAT 98
[2024-11-22] VITALS: BP 113/80; PULSE 93; RESP 18; TEMP 36.8; O2SAT 96
[2024-11-22 04:00] VITALS: BP 130/83; PULSE 95; RESP 18; TEMP 36.7; O2SAT 98
[2024-11-22 08:00] VITALS: BP 123/80; PULSE 98; RESP 20; TEMP 36.6; O2SAT 97
[2024-11-22 12:00] VITALS: BP 119/86; PULSE 92; RESP 20; TEMP 36.6; O2SAT 97
[2024-11-22 16:00] VITALS: BP_SYST 123; BP_SYST 147; BP_DIAS 147; BP_DIAS 46; PULSE 86; PULSE 96; RESP 20; TEMP 36.6; TEMP 36.7; O2SAT 96; O2SAT 99
[2024-11-22 20:00] VITALS: BP 126/67; PULSE 129; RESP 18; TEMP 36.4; O2SAT 96
[2024-11-23] VITALS: BP 108/67; PULSE 118; RESP 18; TEMP 36.5; O2SAT 96
[2024-11-23 04:00] VITALS: BP 120/71; PULSE 108; RESP 18; TEMP 36.2; O2SAT 99
[2024-11-23 07:44] VITALS: BP 118/80; PULSE 114; RESP 19; TEMP 36.7; O2SAT 95
[2024-11-23 12:00] VITALS: BP 119/86; PULSE 117; RESP 18; TEMP 36.6; O2SAT 95
[2024-11-23 16:00] VITALS: BP 140/86; PULSE 118; RESP 18; TEMP 36.6; O2SAT 96
[2024-11-23 20:00] VITALS: BP 137/87; PULSE 126; RESP 18; TEMP 37.7; O2SAT 96
[2024-11-23] MEDS: METOPROLOL TARTRATE 50MG TABLET PO SCH (22:04)
[2024-11-24] VITALS: BP 134/86; PULSE 116; RESP 17; TEMP 37.2; O2SAT 97
[2024-11-24 04:00] VITALS: BP 122/82; PULSE 106; RESP 19; TEMP 37.1; O2SAT 98
[2024-11-24 08:00] VITALS: BP 139/94; PULSE 101; RESP 20; TEMP 36.6; O2SAT 97
[2024-11-24 12:00] VITALS: BP 134/93; PULSE 81; RESP 18; TEMP 36.4; O2SAT 96
[2024-11-24 16:00] VITALS: BP 131/87; PULSE 105; RESP 18; TEMP 36.4; O2SAT 96
[2024-11-24 20:00] VITALS: BP 130/87; PULSE 117; RESP 17; TEMP 37.5; O2SAT 97
[2024-11-25] VITALS: BP 118/80; PULSE 93; RESP 16; TEMP 37.1; O2SAT 98
[2024-11-25 04:00] VITALS: BP 122/85; PULSE 102; RESP 18; TEMP 36.5; O2SAT 99
[2024-11-25 08:00] VITALS: BP 128/91; PULSE 107; RESP 17; TEMP 36.3; O2SAT 96
[2024-11-25] MEDS ORDERED: DEXTROSE 50% WATER 50ML SYRINGE IV PRN (08:15)
[2024-11-25] MEDS ORDERED: CLONIDINE 0.1MG TABLET PO PRN (08:15)
[2024-11-25] MEDS: BACITRACIN 14GM TUBE TOP SCH (09:39)
[2024-11-25 12:00] VITALS: BP_SYST 126; BP_SYST 137; BP_DIAS 84; BP_DIAS 92; PULSE 111; RESP 18; TEMP 36.2; O2SAT 96
[2024-11-25] MEDS: BLOOD SUGAR DIAGNOSTIC STRIP TEST SCH (12:48)
[2024-11-25] MEDS: INSULIN LISPRO 100 UNITS/ML SUBCUT SCH (12:50)
[2024-11-25 16:00] VITALS: BP 126/84; PULSE 122; RESP 18; TEMP 36.4; O2SAT 96
[2024-11-25 20:00] VITALS: BP 122/78; PULSE 78; RESP 18; TEMP 38.2; O2SAT 95
[2024-11-26 04:00] VITALS: BP 122/85; PULSE 103; RESP 20; TEMP 36.3; O2SAT 95
[2024-11-26 08:00] VITALS: BP 122/84; PULSE 100; RESP 18; TEMP 36.6; O2SAT 96
[2024-11-26 12:00] VITALS: BP 105/69; PULSE 106; RESP 19; TEMP 36.1; O2SAT 98
[2024-11-26 16:00] VITALS: BP 103/64; PULSE 109; RESP 19; TEMP 37.6; O2SAT 96
[2024-11-26 20:00] VITALS: BP 107/62; PULSE 136; RESP 18; TEMP 36.8; O2SAT 98
[2024-11-27] VITALS: BP 117/64; PULSE 94; RESP 20; TEMP 36.1; O2SAT 97
[2024-11-27 04:00] VITALS: BP 107/66; PULSE 107; RESP 18; TEMP 36.2; O2SAT 95
[2024-11-27 08:00] VITALS: BP 111/70; PULSE 112; RESP 19; TEMP 36.3; O2SAT 95
[2024-11-27 12:00] VITALS: BP 107/68; PULSE 98; RESP 20; TEMP 36.2; O2SAT 94
[2024-11-27 16:00] VITALS: BP 122/78; PULSE 117; RESP 18; TEMP 36.3; O2SAT 94
[2024-11-27 20:00] VITALS: BP 130/64; PULSE 70; RESP 19; TEMP 36.5; O2SAT 97
[2024-11-28] VITALS: BP 110/59; PULSE 109; RESP 19; TEMP 36.6; O2SAT 96
[2024-11-28 04:00] VITALS: BP 124/82; PULSE 103; RESP 19; TEMP 36.3; O2SAT 95
[2024-11-28 08:00] VITALS: BP 113/72; PULSE 118; RESP 18; TEMP 36.4; TEMP 36.6; O2SAT 95
[2024-11-28 12:00] VITALS: BP 110/73; PULSE 106; RESP 18; TEMP 36.8; O2SAT 99
[2024-11-28 16:00] VITALS: BP 114/69; PULSE 111; RESP 19; TEMP 36.7; O2SAT 95
[2024-11-28 20:00] VITALS: BP 116/74; PULSE 125; RESP 18; TEMP 37.1; O2SAT 96
[2024-11-29] VITALS: BP 101/58; PULSE 98; RESP 18; TEMP 36.4; O2SAT 95
[2024-11-29 04:00] VITALS: BP 104/71; PULSE 102; RESP 18; TEMP 36.2; O2SAT 96
[2024-11-29 08:00] VITALS: BP 111/77; PULSE 109; RESP 20; TEMP 36.5; O2SAT 97
[2024-11-29 12:00] VITALS: BP 100/65; PULSE 95; RESP 20; TEMP 36.2; O2SAT 95
[2024-11-29 16:00] VITALS: BP 111/72; PULSE 95; RESP 20; TEMP 36.3; O2SAT 96
[2024-11-29 20:00] VITALS: BP 111/67; PULSE 113; RESP 19; TEMP 36.2; O2SAT 98
[2024-11-30 04:00] VITALS: BP 109/63; PULSE 101; RESP 19; TEMP 36.3; O2SAT 96
[2024-11-30 08:00] VITALS: BP 120/79; PULSE 100; RESP 18; TEMP 35.8; O2SAT 96
[2024-11-30 12:00] VITALS: BP 108/66; PULSE 96; RESP 18; TEMP 36.1; O2SAT 97
[2024-11-30 16:00] VITALS: BP 120/81; PULSE 105; RESP 19; TEMP 36.5; O2SAT 98
[2024-11-30 20:00] VITALS: BP 134/72; PULSE 123; RESP 18; TEMP 36.7; O2SAT 96
[2024-12-01 04:00] VITALS: BP 110/67; PULSE 105; RESP 18; TEMP 36.3; O2SAT 98
[2024-12-01 08:00] VITALS: BP 110/68; PULSE 104; RESP 19; TEMP 36.3; O2SAT 97
[2024-12-01 12:00] VITALS: BP 117/74; PULSE 91; RESP 20; TEMP 36.3; O2SAT 99
[2024-12-01 16:00] VITALS: BP 123/77; PULSE 115; RESP 18; TEMP 36.6; O2SAT 97
[2024-12-01 20:00] VITALS: BP 112/68; PULSE 128; RESP 20; TEMP 36.6; O2SAT 96
[2024-12-02] VITALS: BP 116/78; PULSE 101; RESP 20; TEMP 36.6; O2SAT 96
[2024-12-02 04:00] VITALS: BP 129/87; PULSE 103; RESP 20; TEMP 36.3; O2SAT 95
[2024-12-02 08:00] VITALS: BP 129/91; PULSE 106; RESP 20; TEMP 36.7; O2SAT 97
[2024-12-02 12:00] VITALS: BP 133/94; PULSE 111; RESP 20; TEMP 37.1; O2SAT 97
[2024-12-02 16:00] VITALS: BP 133/11; PULSE 109; RESP 20; TEMP 38.2; O2SAT 98
[2024-12-02 20:00] VITALS: BP 115/74; PULSE 119; RESP 20; TEMP 36.7; O2SAT 96
[2024-12-03] VITALS (7 sets, daily range): BP systolic 106–139; BP diastolic 68–93; PULSE 100–117; RESP 19–20; TEMP 36.3–36.8; O2SAT 95–98
[2024-12-04] VITALS: BP 108/71; PULSE 109; RESP 19; TEMP 36.3; O2SAT 98
[2024-12-04 04:00] VITALS: BP 117/73; PULSE 103; RESP 19; TEMP 36.4; O2SAT 98
[2024-12-04 08:00] VITALS: BP 124/83; PULSE 108; RESP 18; TEMP 36.2; O2SAT 97
[2024-12-04 08:28] VITALS: PULSE 103
[2024-12-04] MEDS ORDERED: SODIUM HYPOCHLORITE 0.125% 473ML SOLUTION TOP SCH (13:00)
== END 2024-12-04 12:35 | DRG 853 ==
LOC: 7EST 17:10 → MICUNO 10-25 12:49 → 8WST 10-28 17:00 → 6EST 11-12 14:35
PROVIDERS: ADMIT Internal Medicine; ATTEND Internal Medicine
PROC: 0RG10A0 Fusion of Cervical Vertebral Joint with Interbody Fusion Device, Anterior Approach, Anterior Column, Open Approach (ICD-10-PCS; principal; 2024-10-25)
PROC: 0RB30ZZ Excision of Cervical Vertebral Disc, Open Approach (ICD-10-PCS; 2024-10-25)
PROC: 009U00Z Drainage of Spinal Canal with Drainage Device, Open Approach (ICD-10-PCS; 2024-10-25)
PROC: 4A11X4G Monitoring of Peripheral Nervous Electrical Activity, Intraoperative, External Approach (ICD-10-PCS; 2024-10-25)
PROC: 5A0945A Assistance with Respiratory Ventilation, 24-96 Consecutive Hours, High Flow/Velocity Cannula (ICD-10-PCS; 2024-10-26)
PROC: 05H533Z Insertion of Infusion Device into Right Subclavian Vein, Percutaneous Approach (ICD-10-PCS; 2024-10-27)
PROC: B546ZZA Ultrasonography of Right Subclavian Vein, Guidance (ICD-10-PCS; 2024-10-27)
PROC: 0JB70ZZ Excision of Back Subcutaneous Tissue and Fascia, Open Approach (ICD-10-PCS; 2024-12-04)
DX: A41.9 Sepsis, unspecified organism (principal); G06.1 Intraspinal abscess and granuloma; L89.154 Pressure ulcer of sacral region, stage 4; J96.01 Acute respiratory failure with hypoxia; G82.50 Quadriplegia, unspecified; M46.22 Osteomyelitis of vertebra, cervical region; E87.1 Hypo-osmolality and hyponatremia; M47.12 Other spondylosis with myelopathy, cervical region; J39.0 Retropharyngeal and parapharyngeal abscess; G95.29 Other cord compression; M48.02 Spinal stenosis, cervical region; M46.42 Discitis, unspecified, cervical region; I10 Essential (primary) hypertension; E86.1 Hypovolemia; E87.6 Hypokalemia; Z20.822 Contact with and (suspected) exposure to COVID-19; E11.69 Type 2 diabetes mellitus with other specified complication; E66.9 Obesity, unspecified; S00.01XA Abrasion of scalp, initial encounter; Z86.61 Personal history of infections of the central nervous system; Z68.37 Body mass index [BMI] 37.0-37.9, adult; Z82.49 Family history of ischemic heart disease and other diseases of the circulatory system; Z83.3 Family history of diabetes mellitus; X58.XXXA Exposure to other specified factors, initial encounter; Y93.89 Activity, other specified; Y92.89 Other specified places as the place of occurrence of the external cause; Y99.8 Other external cause status
CPT/HCPCS: 36415; 36573; 36600; 71045; 72040; 72141; 72146; 72156; 72157; 74018; 76000; 80048; 80061; 80202; 81003; 82375; 82805; 82962; 83036; 84145; 84478; 85025; 85027; 86850; 86900; 87015; 87045; 87070; 87075; 87077; 87106; 87426; 87427; 87449; 87493; 92610; 93005; 93970; 94002; 94003; 94070; 94640; 94664; 95863; 95925; 95926; 95928; 95929; 97110; 97112; 97162; 97166; 97530; 97535; 97542; A4565; A4606; A6261; A9577; C1725; J0690; J0692; J0696; J1100; J1171; J1580; J1650; J1815; J2003; J2004; J2250; J2270; J2704; J3010; J3370; J3480; J3490; J7030; J7040; J7050; J7060; J7121; L0172; C1713; C1889

== ENCOUNTER → 2025-03-05 | Outpatient (CLI) | payer BC ==
[~2025-03-05] MED LIST: METF-416 PO
== END | disposition home or self-care (01) ==
LOC: MRI 12:26
DX: L89.154 Pressure ulcer of sacral region, stage 4 (principal); M86.9 Osteomyelitis, unspecified
CPT/HCPCS: 72195